=== PATIENT | female | born 1975 | race Caucasian/White ===

== ENCOUNTER 2017-08-04 10:14 | Emergency (ER) | payer OTHER ==
[2017-08-04 10:34] VITALS: BP 114/71
--- NOTE | 2017-08-04 11:06 | UC ---
Cardiac HPI - HPI Summary HPI Summary: 41 yo female with the gradual onset of right lower sternal CP that started yesterday AM no SOB no n/v/d no abd pain last night if she laid on her right side the pain worsened pain also worsens when she bends over or changes positions for supine to erect - History of Current Complaint Chief Complaint: UCChestPain Stated Complaint: CHEST PAIN Time Seen by Provider: 08/04/17 10:48 Hx Obtained From: Patient Hx Last Menstrual Period: 07/20/17 Onset/Duration: Gradual Onset, Lasting Hours Timing: Constant Initial Severity: Mild Current Severity: Mild Pain Intensity: 4 Chest Pain Location: Discrete at: - see image Character: Sharp/Stabbing Aggravating Factor(s): Position, Movement Alleviating Factor(s): Rest Associated Signs & Symptoms: Positive: Chest Pain - Allergy/Home Medications Allergies/Adverse Reactions: Allergies Allergy/AdvReac Type Severity Reaction Status Date / Time cephalexin [From Keflex] Allergy Rash Verified 08/04/17 10:36 codeine Allergy Vomiting Verified 08/04/17 10:36 Penicillins Allergy Hives Verified 08/04/17 10:36 Home Medications: Home Medications Bupropion XL* [Wellbutrin XL *] 150 mg PO DAILY 08/04/17 [History Confirmed ] Loratadine [Claritin 10 MG CAP] 10 mg PO DAILY 08/04/17 [History Confirmed 08/04] PMH/Surg Hx/FS Hx/Imm Hx Previously Healthy: Yes - Surgical History Surgical History: Yes Surgery Procedure, Year, and Place: eye surgery, skin ca removed - Family History Known Family History: Positive: Cardiac Disease, Hypertension, Diabetes - Social History Alcohol Use: Daily Alcohol Amount: 1-2 wine/beer Substance Use Type: None Smoking Status (MU): Former Smoker Have You Smoked in the Last Year: No When Did the Patient Quit Smoking/Using Tobacco: 15 yrs Household Exposure Type: Cigarettes Review of Systems Constitutional: Negative Skin: Negative Eyes: Negative ENT: Negative Respiratory: Negative Cardiovascular: Chest Pain Gastrointestinal: Negative Genitourinary: Negative Motor: Negative Neurovascular: Negative Musculoskeletal: Negative Neurological: Negative Psychological: Negative Is Patient Immunocompromised?: No All Other Systems Reviewed And Are Negative: Yes Physical Exam Triage Information Reviewed: Yes Appearance: Well-Appearing, No Pain Distress, Well-Nourished Vital Signs: Initial Vital Signs Temp 97.8 F 08/04/17 10:28 Pulse 74 08/04/17 10:28 Resp 16 08/04/17 10:28 BP 114/71 08/04/17 10:28 Pulse Ox 98 08/04/17 10:28 Vital Signs Reviewed: Yes Eyes: Positive: Conjunctiva Clear ENT: Positive: Hearing grossly normal. Negative: Nasal congestion, Nasal drainage, Trismus, Muffled voice, Hoarse voice Neck: Positive: Supple, Nontender, No Lymphadenopathy Respiratory: Positive: Chest non-tender, Lungs clear, Normal breath sounds, No respiratory distress Cardiovascular: Positive: RRR, No Murmur, Pulses Normal Abdomen Description: Positive: Nontender, No Organomegaly, Soft Bowel Sounds: Positive: Present Musculoskeletal: Positive: ROM Intact, No Edema Neurological: Positive: Alert Psychological Exam: Normal Skin Exam: Normal Diagnostics - Radiology No standard instances Xray Interpretation: No Acute Changes Radiology Interpretation Completed By: Radiologist - EKG Cardiac Rate: NL Cardiac Rhythm: Sinus: Normal Ectopy: None - Clinical Impression Provider Diagnoses: atypical chest pain. suspect chest wall pain Discharge - Sign-Out/Discharge Documenting (check all that apply): Discharge/Admit/Transfer - Discharge Plan Condition: Stable Disposition: HOME Patient Education Materials: Chest Wall Pain (ED) Referrals: Jose Alejandro Sevilla MD [Primary Care Provider] - If Needed (I suggest you get rechecked this week) Additional Instructions: heat advil or aleve for pain recheck for new or worsening symptoms (here or ER) - Billing Disposition and Condition Condition: STABLE Disposition: HOME Images Front/Back of Body, Lg (Levy): 1 - pain here only
--- NOTE | 2017-08-04 11:17 | RAD ---
INDICATION: Right-sided chest pain COMPARISON: None TECHNIQUE: PA and lateral dual-energy views were obtained. FINDINGS: Bones/Soft Tissues: There are no acute bony findings. Cardiomediastinal: The cardiomediastinal silhouette is normal. Lungs: There are no infiltrates. Pleura: There are no pleural effusions. Other: None IMPRESSION: NORMAL CHEST.
== END 2017-08-04 11:55 | disposition home or self-care (01) ==
LOC: UCEAST 10:14
DX: R07.89 Other chest pain (principal); Z88.1 Allergy status to other antibiotic agents; Z88.5 Allergy status to narcotic agent; Z88.0 Allergy status to penicillin; Z85.828 Personal history of other malignant neoplasm of skin; Z87.891 Personal history of nicotine dependence
CPT/HCPCS: 71046; 93005; 99211; G0463